=== PATIENT | male | born 1955 | race Caucasian/White ===

== ENCOUNTER 2017-03-12 10:12 | Emergency (ER) | payer SELFPAY ==
[~2017-03-12] VITALS: Ht 193 cm; Wt 131.9 kg
[2017-03-12 10:13] VITALS: BP 137/62
[2017-03-12] MEDS ORDERED: ROBA500T PO (11:03)
[2017-03-12] MEDS ORDERED: NORCOTAB PO (11:03)
== END 2017-03-12 11:09 | disposition home or self-care (01) ==
LOC: M ED 10:12
DX: S86.211A Strain of muscle(s) and tendon(s) of anterior muscle group at lower leg level, right leg, initial encounter (principal); X58.XXXA Exposure to other specified factors, initial encounter; Y92.410 Unspecified street and highway as the place of occurrence of the external cause; Y99.9 Unspecified external cause status; Y93.9 Activity, unspecified